=== PATIENT | male | born 1955 | race Caucasian/White ===

== ENCOUNTER 2025-05-25 10:41 | Outpatient (CLI) | payer MEDICARE, OTHER | END 2025-05-25 10:42 | disposition home or self-care (01) | LOC: SCSRAD 10:41 | PROVIDERS: ATTEND Family Medicine | DX: M62.830 Muscle spasm of back (principal); S39.012S Strain of muscle, fascia and tendon of lower back, sequela; M51.369 Other intervertebral disc degeneration, lumbar region without mention of lumbar back pain or lower extremity pain; M47.816 Spondylosis without myelopathy or radiculopathy, lumbar region | CPT/HCPCS: 72110 ==

== ENCOUNTER 2025-08-19 10:29 | Outpatient (CLI) | payer MEDICARE, OTHER | END 2025-08-19 10:30 | disposition home or self-care (01) | LOC: SCSRAD 10:29 | PROVIDERS: ATTEND Family Medicine | DX: M25.541 Pain in joints of right hand (principal); M25.542 Pain in joints of left hand; M25.571 Pain in right ankle and joints of right foot; M19.042 Primary osteoarthritis, left hand; M19.041 Primary osteoarthritis, right hand; M19.071 Primary osteoarthritis, right ankle and foot ==